=== PATIENT | female | born 1970 | race Caucasian/White ===

== ENCOUNTER → 2016-05-21 | Outpatient (CLI) | payer MEDICAID ==
--- NOTE | 2016-05-21 09:21 | MA ---
Screening Digital Mammogram with Digital Breast Tomosynthesis Clinical Indications: Routine screening. Technique: Standard cephalocaudal projections are obtained. Digital breast tomosynthesis was perform ed in the MLO projection with reconstruction at 1.0 mm slice thickness and composite MLO views recons tructed. This examination is processed by the CAD computer aided detection system. Comparison: April 11, 2015; August 31, 2014; March 20, 2014; February 23, 2014. Breast density: B; There are scattered areas of fibroglandular density. Findings: CAD was reviewed. Within the upper outer and upper central left breast, there are possible developing nodules versus overlapping breast parenchymal tissue. No additional masses are seen within either breast. There are no significant clusters of microcalcifications. The axilla are clear. Impression: Possible developing nodules versus overlapping breast parenchymal tissue upper outer and upper central left breast. Recommendation: Consider ultrasound for further characterization upper outer and upper central left b reast. Additional imaging evaluation on the left is needed. BI-RADS 0. [facility] will send a result letter to the patient. Negative mammography should not preclude additional workup of a clinically suspicious finding. The patient's information is entered into a reminder system with a target due date for her next mammo gram.
== END ==
LOC: FIMAGING 07:31
DX: Z12.31 Encounter for screening mammogram for malignant neoplasm of breast (principal)
CPT/HCPCS: G0202

== ENCOUNTER → 2016-05-29 | Outpatient (CLI) | payer MEDICAID ==
--- NOTE | 2016-05-29 10:54 | US ---
Left Breast Ultrasound History: Asymmetries in the upper portion of the left breast seen on recent screening tomosynthesis Comparison: Screening mammogram May 21, 2016 Technique: Ultrasound exam with a high frequency linear transducer. Findings: At the 1:00 radial, approximately 4 cm from the nipple is a small ovoid 4 mm cyst that jose luis elates with the mammographic nodule behind the upper left areola. Above and slightly lateral to this, no mammographic abnormality is identified. There is no dilated duct or solid abnormality. Impression: Mammographic tomosynthesis findings are probably benign. Recommendation: 6 month follow-up left breast tomosynthesis to ensure stability BI-RADS 3. Probably benign. Results and recommendation were communicated to the patient at the time of the examination.
== END ==
LOC: FIMAGING 09:38
PROVIDERS: ATTEND Family Medicine
DX: N60.02 Solitary cyst of left breast (principal)

== ENCOUNTER 2017-02-09 17:38 | Emergency (ER) | payer MEDICAID ==
[2017-02-09 17:45] VITALS: RESP 16
[2017-02-09] MEDS ORDERED: KETOROLAC 30 MG/1 ML SDV IVP ONE (18:28)
[2017-02-09] MEDS ORDERED: METOCLOPRAMIDE 10 MG/2 ML VIAL IVP ONE (18:28)
[2017-02-09] MEDS ORDERED: DEXAMETHASONE 10 MG/ML VIAL IVP ONE (18:28)
[2017-02-09] MEDS ORDERED: LORazepam 2 MG/ML INJ IVP ONE (18:30)
--- NOTE | 2017-02-09 18:43 | EDPHY ---
H & P Stated Complaint: migraine started this morning/nauseated/photosensitive Time Seen by Provider: 02/09/17 18:17 - Personal History LMP (Females 10-55): Post Menopausal Current Tetanus/Diphtheria Vaccine: Yes - Medical/Surgical History Hx Asthma: No Hx Chronic Respiratory Disease: No Hx Diabetes: No Hx Cardiac Disease: No Hx Renal Disease: No Hx Cirrhosis: No Hx Alcoholism: Yes Hx HIV/AIDS: No Hx Splenectomy or Spleen Trauma: No Other PMH: medical hypertension. surgery tonsillectomy - Social History Smoking Status: Current every day smoker Constitutional: Initial Vital Signs Temperature (C) 36.7 C 02/09/17 17:42 Heart Rate 74 02/09/17 17:42 Respiratory Rate 16 02/09/17 17:42 Blood Pressure 150/108 H 02/09/17 17:42 O2 Sat (%) 98 02/09/17 17:42 O2 Delivery Mode Room Air Allergies/Adverse Reactions: Sulfa (Sulfonamide Antibiotics) Allergy (Unknown, Verified 02/09/17 17:41) UNCLEAR Home Medications: Medication Instructions Recorded Maxalt 05/26/15 VYVANSE 02/09/17 Medical Decision Making ED Course/Re-evaluation: CHIEF COMPLAINT: Migraine HISTORY OF PRESENT ILLNESS: The patient is a 46 y/o female with a history of migraines complaining of a migraine onset at 03:00 this morning, about 15 hours ago. She's been under stress with a new job and took a lot of CBD oil last night and thinks that caused her headache this morning. She tried taking her standard migraine medication and Vyvanse for her pain without improvement. She has associated photophobia and nausea. She states this headache is the same as prior migraines, except it has lasted longer than normal. She denies weakness, paresthesias, difficulty with speech, confusion, fever, recent trauma, or recent illness. REVIEW OF SYSTEMS: A 10 point review of systems was performed and is negative with the exception of the elements mentioned in the history of present illness. PHYSICAL EXAM: HR, BP, O2 Sat, RR. Temp noted General Appearance: Alert, well hydrated, appropriate, and non-toxic appearing. Head: Atraumatic without scalp tenderness or obvious injury Eyes: Pupils equal, round, reactive to light and accommodation, EOMI, no trauma , no injection. Nose: Atraumatic, no rhinorrhea, clear. Throat: Mucus membranes moist. Neck: Supple,non-tender, no lymphadenopathy. Respiratory: No retractions, no distress, no wheezes, and no accessory muscle use. Lungs are clear to auscultation bilaterally. Cardiovascular: Regular rate and rhythm, no murmurs, rubs, or gallops. Good capillary refill all extremities. Gastrointestinal: Abdomen is soft, non-tender, non-distended, no masses, no rebound, no guarding, no peritoneal signs. Musculoskeletal: Normal active ROM of all extremities, atraumatic. Neurological: Alert, appropriate, and interactive. Nonfocal neuro exam. Skin: No rashes, good turgor, no nodules on palpation. PAST MEDICAL HISTORY: Anxiety, migraines, chronic pain PAST SURGICAL HISTORY: denies SOCIAL HISTORY: Works at [employer]. Smoker. Dr. Ledezma. DIFFERENTIAL DIAGNOSIS: The differential diagnosis for the patient's headache included but was not limited to subarachnoid hemorrhage, migraine headache, tension headache and infectious causes such as meningitis, pharyngitis and sinusitis. MEDICAL DECISION MAKING: This is a 46 y/o female with a history of migraines who presents with a 15-hour history of a migraine similar to prior headaches. She is neurovascularly intact. She is only requesting assistance with symptoms and does not want further work up here. Plan for IV, 10mg IV Reglan, 10mg IV Decadron, 30mg IV Toradol, 1mg IV Ativan, and 1L IV NS administered. She refuses any narcotics. Reassess patient. She is feeling improved and ready to go home. Standard migraine care and follow up instructions given. She is comfortable with this plan. - Data Points Medications Given: Discontinued Medications Dexamethasone (Decadron Injection) 10 mg IVP EDNOW ONE Stop: 02/09/17 18:29 Last Admin: 02/09/17 18:53 Dose: 10 mg Ketorolac Tromethamine (Toradol) 30 mg IVP EDNOW ONE Stop: 02/09/17 18:29 Last Admin: 02/09/17 18:51 Dose: 30 mg Lorazepam (Ativan Injection) 1 mg IVP EDNOW ONE Stop: 02/09/17 18:31 Last Admin: 02/09/17 18:51 Dose: 1 mg Metoclopramide HCl (Reglan Injection) 10 mg IVP EDNOW ONE Stop: 02/09/17 18:29 Last Admin: 02/09/17 18:54 Dose: 10 mg Departure - Departure Disposition: Home, Routine, Self-Care Clinical Impression: Migraine Qualifiers: Migraine type: other Status migrainosus presence: without status migrainosus Intractability: not intractable Qualified Code(s): G43.809 - Other migraine, not intractable, without status migrainosus Condition: Good Instructions: Migraine Headache (ED) Additional Instructions: Follow up with your neurologist or primary care provider for unimproved symptoms over the next 2-3 days. Return to the ED for worsening of condition. Referrals: Facundo Ledezma DO [Primary Care Provider] - As per Instructions Stand Alone Forms: Work Excuse Report Scribed for: Rich Davenport Report Scribed by: Luma Reyes Date of Report: 02/09/17 Time of Report: 18:43
[2017-02-09 21:01] VITALS: BP 148/101; PULSE 65; TEMP 97.9; O2SAT 97
== END 2017-02-09 20:59 | disposition home or self-care (01) ==
DX: G43.809 Other migraine, not intractable, without status migrainosus (principal); F17.200 Nicotine dependence, unspecified, uncomplicated; I10 Essential (primary) hypertension
CPT/HCPCS: 96374; J1100; J1885; J2060; J2765

== ENCOUNTER 2017-09-22 16:12 | Emergency (ER) | payer MEDICAID ==
[2017-09-22] MEDS ORDERED: IBUPROFEN 600 MG TAB PO ONE (16:41)
[2017-09-22] MEDS ORDERED: ACETAMINOPHEN 500 MG TAB PO ONE (16:41)
--- NOTE | 2017-09-22 16:44 | EDPHY ---
H & P Time Seen by Provider: 09/22/17 16:34 HPI/ROS: HPI Flu-like symptoms. 47-year-old female on foot. She complains of 24 hr of cough, nasal congestion, sore throat, fatigue, muscle aches and body aches. Denies ill contacts. ROS: Constitutional: No fever, no chills. No weakness. Eyes: No discharge. No changes in vision. ENT: As above. Respiratory: As above. No shortness of breath. Cardiac: No chest pain, no palpitations. Gastrointestinal: No abdominal pain, no vomiting, no diarrhea. Genitourinary: No hematuria. No dysuria or increased frequency with urination. Musculoskeletal: No back pain. No neck pain. As above. Skin: No rashes. Neurological: No headache. No focal weakness or altered sensation. Past medical history: Hypertension, tonsillectomy. Social history: Smoker. Here by herself. No alcohol. Physical Exam: General Appearance: Alert, no distress. This patient is responding to questions appropriately and in full sentences. This patient appears well- hydrated and well-nourished. Eyes: Pupils equal and round no pallor or injection. No lid edema, erythema or injection. ENT, Mouth: Mucous membranes are moist. Diffuse pharyngeal erythema present. No edema or swelling. No asymmetry suggestive of abscess. No exudates. No cervical, submental, submandibular lymphadenopathy. Respiratory: There are no retractions, lungs are clear to auscultation with good air movement bilaterally. Cardiovascular: Regular rate and rhythm. No murmur. Neurological: Motor sensory function is grossly intact. Cranial nerves are normal. Gait is normal. Skin: Warm and dry, no rashes. Musculoskeletal: Neck is supple and nontender. No pain on flexion of her neck. Extremities are symmetrical. All joints range without pain or impingement. Psychiatric: No agitation. No depression. Database: EKG: Imaging: Chest x-ray PA and lateral; the cardiac mediastinal silhouette is unremarkable. No evidence of infiltrate or pneumothorax. No acute cardiopulmonary disease process noted. Interpreted by me. Procedures: Emergency department course: Vital signs reviewed and are normal. The patient was given 1 g of Tylenol orally and 600 mg of ibuprofen. Chest x-ray, rapid flu and strep to be obtained. 5:20 p.m., patient re-evaluated. Resting comfortably at this time. Vital signs have remained normal. Results of chest x-ray, rapid flu and rapid strep discussed with her. Her presentation is consistent with a viral syndrome. She feels comfortable going home. Ibuprofen dosing discussed with her. Supportive care reviewed. Follow-up and return to emergency department precautions customarily reviewed. All of her questions were answered. She was discharged from the emergency department in good condition. Differential Diagnosis: The differential diagnosis on this patient includes but is not limited to influenza, viral syndrome, viral pharyngitis, streptococcal pharyngitis. Pneumonia, meningitis unlikely. This represents a partial list of diagnoses considered. These considerations are based on history, physical exam, past history, reassessment and diagnostic testing. Smoking Status: Current every day smoker Constitutional: Initial Vital Signs Temperature (C) 36.6 C 09/22/17 16:20 Heart Rate 72 09/22/17 16:20 Respiratory Rate 17 09/22/17 16:20 Blood Pressure 131/85 H 09/22/17 16:20 O2 Sat (%) 95 09/22/17 16:20 O2 Delivery Mode Room Air Allergies/Adverse Reactions: Sulfa (Sulfonamide Antibiotics) Allergy (Unknown, Verified 09/22/17 16:19) UNCLEAR Home Medications: Medication Instructions Recorded Maxalt 05/26/15 VYVANSE 02/09/17 Medical Decision Making - Data Points Laboratory Results: 09/22/17 16:40 Nasal Influenza A PCR Pending Nasal Influenza B PCR Pending Group A Strep Screen Pending Departure - Departure Disposition: Home, Routine, Self-Care Clinical Impression: Pharyngitis, Viral syndrome Condition: Good Instructions: Pharyngitis (ED), Viral Syndrome (ED) Additional Instructions: Read and follow provided instructions. Follow-up with your primary care physician in 1-2 days for re-evaluation. Ibuprofen dosin mg every 6 hours with meals for the next 3 days only. Take for muscle aches, sore throat and fever Take only as needed for pain. Return to the emergency department for worsening symptoms or other serious concerns. Referrals: Meliton Quiroz [Primary Care Provider] - As per Instructions
[2017-09-22 17:46] VITALS: BP 143/96
== END 2017-09-22 17:46 | disposition home or self-care (01) ==
DX: J02.9 Acute pharyngitis, unspecified (principal); B34.9 Viral infection, unspecified; I10 Essential (primary) hypertension; F17.200 Nicotine dependence, unspecified, uncomplicated